=== PATIENT | male | born 1995 | race Caucasian/White ===

== ENCOUNTER 2019-02-22 13:57 | Emergency (ER) | payer OTHER ==
--- NOTE | 2019-02-22 15:11 | EDM.PDOC ---
ED HPI GENERAL MEDICAL PROBLEM - General Chief Complaint: ENT Problem Stated Complaint: POSSIBLE BRONCHITIS Time Seen by Provider: 02/22/19 14:07 Source of Information: Reports: Patient History Limitations: Reports: No Limitations - History of Present Illness INITIAL COMMENTS - FREE TEXT/NARRATIVE: Presents reporting a 24-hour history of sore throat, body aches, headache, pain with swallowing, subjective fever, cough. Otherwise healthy without chronic medical problems. Did not have a flu shot. Does not smoke cigarettes but is does vape on a regular basis. Generalized Pain Score (Numeric/FACES): 7 - Related Data Allergies Allergy/AdvReac Type Severity Reaction Status Date / Time No Known Allergies Allergy Verified 02/22/19 14:25 Home Meds: Home Meds Benzonatate [Tessalon Perle] 1 cap PO Q8HR PRN #20 capsule 02/22/19 [Rx] Codeine Phosphate/Guaifenesin [Guaifen-Codeine 100-10 mg/5 ml] 10 ml PO Q6HR PRN #240 liquid 02/22/19 [Rx] Diclofenac Sodium [Voltaren] 75 mg PO BIDMEALS #20 tab.ec 02/22/19 [Rx] buPROPion [Wellbutrin] 150 mg PO BID 02/22/19 [History] Past Medical History - Past Health History Medical/Surgical History: Denies Medical/Surgical History - Infectious Disease History Infectious Disease History: Reports: None Social & Family History - Family History Family Medical History: Noncontributory - Tobacco Use Smoking Status *Q: Never Smoker Second Hand Smoke Exposure: No - Caffeine Use Caffeine Use: Reports: None - Recreational Drug Use Recreational Drug Use: No ED ROS ENT - Review of Systems Review Of Systems: Comprehensive ROS is negative, except as noted in HPI. ED EXAM, ENT - Physical Exam Exam: See Below Exam Limited By: No Limitations General Appearance: Alert, No Apparent Distress Ears: Normal External Exam Nose: Normal Inspection Mouth/Throat: Normal Inspection Head: Atraumatic, Normocephalic Neck: Normal Inspection Respiratory/Chest: No Respiratory Distress, Lungs Clear, Normal Breath Sounds Cardiovascular: Normal Peripheral Pulses, Regular Rate, Rhythm, No Murmur Neurological: Alert, Oriented Psychiatric: Normal Affect, Normal Mood Skin: Warm, Dry, Intact, Normal Color, No Rash Lymphatic: No Adenopathy Course - Vital Signs Last Recorded V/S: Last Vital Signs Temp 36.6 C 02/22/19 14:26 Pulse 88 02/22/19 14:26 Resp 16 02/22/19 14:26 BP 130/66 02/22/19 14:26 Pulse Ox 98 02/22/19 14:26 - Orders/Labs/Meds Orders: Active Orders 24 hr Category Date Time Status CULTURE STREP A CONFIRMATION [] Stat Lab 02/22/19 14:45 Results INFLUENZA A+B AG SCREEN [] Stat Lab 02/22/19 14:39 Ordered STREP SCRN A RAPID W CULT CONF [] Stat Lab 02/22/19 14:39 Ordered Departure - Departure Time of Disposition: 15:13 Disposition: Home, Self-Care 01 Condition: Good Clinical Impression: Flu syndrome - Discharge Information Prescriptions: Codeine Phosphate/Guaifenesin [Guaifen-Codeine 100-10 mg/5 ml] 10 ml PO Q6HR PRN #240 liquid PRN Reason: Cough Benzonatate [Tessalon Perle] 1 cap PO Q8HR PRN #20 capsule PRN Reason: Cough Diclofenac Sodium [Voltaren] 75 mg PO BIDMEALS #20 tab.ec Referrals: PCP,Not In Area [Primary Care Provider] - [facility] [Outside] [facility] [Outside] Forms: ED Department Discharge Additional Instructions: The following information is given to patients seen in the emergency department who are being discharged to home. This information is to outline your options for follow-up care. We provide all patients seen in our emergency department with a follow-up referral. The need for follow-up, as well as the timing and circumstances, are variable depending upon the specifics of your emergency department visit. If you don't have a primary care physician on staff, we will provide you with a referral. We always advise you to contact your personal physician following an emergency department visit to inform them of the circumstance of the visit and for follow-up with them and/or the need for any referrals to a consulting specialist. The emergency department will also refer you to a specialist when appropriate. This referral assures that you have the opportunity for follow-up care with a specialist. All of these measure are taken in an effort to provide you with optimal care, which includes your follow-up. Under all circumstances we always encourage you to contact your private physician who remains a resource for coordinating your care. When calling for follow-up care, please make the office aware that this follow-up is from your recent emergency room visit. If for any reason you are refused follow-up, please contact the [facility] Emergency Department at and asked to speak to the emergency department charge nurse. 1. Diclofenac 75 mg one now and one tonight and then twice daily for the next couple of days and then as needed. 2. Cough syrup 1-2 teaspoons at bedtime no driving or operating machinery 3. Tessalon Perles 1-2 every 8 hours as needed for cough 4. Plenty of fluids and rest 5. Low up in primary care for continuing symptoms. Return promptly for breathing problems, vomiting and not keeping down oral fluids Sepsis Event Note - Evaluation Sepsis Screening Result: No Definite Risk - Focused Exam Vital Signs: Vital Signs Temp Pulse Resp BP Pulse Ox 02/22/19 14:26 36.6 C 88 16 130/66 98 Date Exam was Performed: 02/22/19 Time Exam was Performed: 15:13 - My Orders Last 24 Hours: My Active Orders 02/22/19 14:39 INFLUENZA A+B AG SCREEN [RM] Stat STREP SCRN A RAPID W CULT CONF [RM] Stat 02/22/19 14:45 CULTURE STREP A CONFIRMATION [RM] Stat - Assessment/Plan Last 24 Hours: My Active Orders 02/22/19 14:39 INFLUENZA A+B AG SCREEN [RM] Stat STREP SCRN A RAPID W CULT CONF [RM] Stat 02/22/19 14:45 CULTURE STREP A CONFIRMATION [] Stat
== END 2019-02-22 15:24 | disposition home or self-care (01) ==
LOC: MW.ED 13:57
DX: J11.1 Influenza due to unidentified influenza virus with other respiratory manifestations (principal)
CPT/HCPCS: 87081; 87804; 87880-QW; 99283